=== PATIENT | male | born 1950 | race Caucasian/White ===

== ENCOUNTER 2017-06-07 13:40 | Observation (INO) | payer OTHER ==
[~2017-06-07] VITALS: Ht 180.3 cm; Wt 108.1 kg
[2017-06-07 14:30] LABS: BASO % 0.5 %; BASO ABS # 0.03 K/uL (0-0.2); EOS % 0.3 %; EOS ABS # 0.02 K/uL (0-0.5); HEMATOCRIT 42.8 % (42-52); HEMOGLOBIN 14.8 g/dL (14.0-18.0); IG# 0.01 K/uL (0.00-0.02); LYMPH % 22.5 %; LYMPH ABS # 1.46 K/uL (1.2-3.4); MEAN CELL VOLUME 89.5 fL (80-100); MEAN CORPUSCULAR HGB CONC 34.6 g/dl (32-36); MEAN PLATELET VOLUME 9.2 fL (7.4-10.4); MONO % 8.9 %; MONO ABS # 0.58 K/uL (0.11-0.59); NEUT % 67.6 %; NEUT ABS # 4.39 K/uL (1.4-6.5); PLATELET COUNT 208 K/uL (130-400); RED CELL DISTRIBUTION WIDTH CV 13.1 % (11.5-14.5); RED CELL DISTRIBUTION WIDTH SD 42.8 fL (36.4-46.3); WHITE BLOOD COUNT 6.49 K/uL (4.8-10.8)
[2017-06-07 14:31] LABS: INR 0.9 (0.9-1.1)
--- NOTE | 2017-06-07 14:47 | DIAGNOSTIC IMAGING REPORT ---
SINGLE VIEW CHEST CLINICAL HISTORY: Atypical chest pain. FINDINGS: An AP, portable, upright chest radiograph is obtained. No prior studies are available for comparison at the time of dictation. The examination is degraded by portable technique and patient rotation. The heart is top normal for projection. The pulmonary vasculature is noncongested. The lungs and pleural spaces are clear. No pneumothorax is seen. The bony thorax is grossly intact. Degenerative change is noted in the thoracic spine. IMPRESSION: No acute cardiopulmonary abnormality. Electronically signed by: Junior Alex M.D. 06/07/2017 2:46 PM Dictated Date/Time: 06/07/2017 2:45 PM
[2017-06-07 14:49] LABS: CALCIUM 8.9 mg/dl (8.5-10.1); CREATININE 1.23 mg/dl (0.60-1.40); POTASSIUM 3.9 mmol/L (3.5-5.1)
--- NOTE | 2017-06-07 14:57 | DIAGNOSTIC IMAGING REPORT ---
CT SCAN OF THE BRAIN WITHOUT IV CONTRAST CLINICAL HISTORY: Left arm and facial numbness. COMPARISON STUDY: No priors. TECHNIQUE: Unenhanced axial CT scan of the brain is performed from the vertex to the skull base. A dose lowering technique was utilized adhering to the principles of ALARA. CT DOSE: 669.45 mGycm FINDINGS: Brain parenchyma: The brain parenchyma is normal in appearance. There is no hemorrhage, mass effect, or evidence of acute territorial ischemia by CT criteria. Carranza-white matter is preserved. No extra-axial fluid collection is seen. Ventricles, sulci, cisterns: Normal in configuration. Intracranial vasculature: There is mild atherosclerotic calcification of the cavernous carotid arteries. Calvarium: Unremarkable. Sinuses and mastoids: The visualized paranasal sinuses are clear. The mastoid air cells are well pneumatized. Orbits: The bony orbits are grossly intact. IMPRESSION: There is no hemorrhage, mass effect, or evidence of acute territorial ischemia by CT criteria. Electronically signed by: Junior Alex M.D. 06/07/2017 2:56 PM Dictated Date/Time: 06/07/2017 2:54 PM
[2017-06-07] MEDS ORDERED: ACET-1256 PO (15:31)
[2017-06-07] MEDS ORDERED: LOSA1TAB38 PO (15:31)
[2017-06-07] MEDS ORDERED: ASPI81TA28 PO (15:31)
[2017-06-07] MEDS ORDERED: ATOR-24 PO (15:31)
[2017-06-07] MEDS ORDERED: MULT-513 PO (15:31)
--- NOTE | 2017-06-07 16:17 | EMERGENCY ROOM VISIT NOTE ---
History Report prepared by Geovani: Lizzette Ken Under the Supervision of: Dr. Deandre Julian M.D. First contact with patient: 14:02 Chief Complaint: CARDIAC ASSESSMENT Stated Complaint: CARDIAC HX - NUMBNESS IN LEFT ARM, PAIN History of Present Illness The patient is a 67 year old male who presents to the Emergency Room with complaints of intermittent chest discomfort starting 1 week ago. The discomfort is in his mid and left chest. He states the discomfort is "hard to explain", but states that it is not pressure or tightness. The discomfort lasts for 5-10 minutes at a time. He is not nauseous or diaphoretic with his chest discomfort. He is currently not having any chest discomfort. The discomfort does not worsen with exertion. He has also had intermittent left arm, left shoulder, and left lower lip tingling for the past 1-2 weeks. This tingling occurs with the chest pain. He is SOB with exertion, but notes that this is not new for him. He has had some congestion. He denies any vomiting, diarrhea, cough, focal weakness, leg swelling, or leg pain. The patient has a history of stents. He had weakness in his upper body prior to his stent. He denies any history of stroke. He is on aspirin which he has taken today. He has been taking all of his medications. The patient was seen by cardiology in [place] last week and offered an exercise stress test for exertional dyspnea and chest discomfort. The patient declined this as he felt it was not necessary. Source of History: patient Onset: 1 week ago Position: chest Quality: other (discomfort) Timing: intermittent Associated Symptoms: No diaphoresis, No cough, No nausea, No vomiting, No diarrhea, No weakness Note: Pt reports tingling in left arm, left shoulder, and left lower lip, congestion. Review of Systems See HPI for pertinent positives & negatives. A total of 10 systems reviewed and were otherwise negative. Past Medical & Surgical Surgical Problems: (1) S/P coronary artery stent placement Family History No pertinent family history stated. Social History Smoking Status: Never Smoker Marital Status: Current/Historical Medications Scheduled Aspirin (Aspirin Ec), 81 MG PO DAILY Atorvastatin (Lipitor), 40 MG PO DAILY Losartan Potassium (Cozaar), 100 MG PO DAILY Multivitamins/Minerals (Mvi With Minerals), 1 TAB PO DAILY Scheduled PRN Acetaminophen (Tylenol), 1,000 MG PO Q6 PRN for Headache or Pain Allergies Coded Allergies: No Known Allergies (Unverified , 06/07/17) Physical Exam Vital Signs Date Time Temp Pulse Resp B/P (MAP) Pulse Ox O2 Delivery O2 Flow Rate FiO2 06/07/17 15:34 68 152/84 94 Room Air 06/07/17 14:32 69 18 160/92 96 Room Air 06/07/17 14:29 97 Room Air 06/07/17 14:06 67 06/07/17 13:49 36.7 81 20 161/91 96 Room Air Physical Exam Constitutional: Vital signs reviewed. Eyes: Pupils are equal round reactive to light. Conjunctiva are noninjected. ENT: Pharynx is clear without erythema or exudate. Mucous membranes are moist. Neck supple without meningeal signs. Respiratory: Clear to auscultation bilaterally. Breath sounds are equal bilaterally. Cardiovascular: Regular rate and rhythm. No rubs or gallops. GI: Soft, nondistended and nontender. Bowel sounds are present. Musculoskeletal: No peripheral edema. No lower extremity tenderness. Integumentary: No cyanosis. Neurological: The patient is awake and alert. Cranial nerves II-XII are intact. Motor is 5 out of 5 all extremities. Sensation is intact to light touch all extremities. Normal speech. No pronator drift. Psychiatric: Normal affect. Medical Decision & Procedures ER Provider Diagnostic Interpretation: X-ray results as stated below per interpretation by me and the radiologist. Radiology results as stated below per my review and the radiologist's interpretation: SINGLE VIEW CHEST CLINICAL HISTORY: Atypical chest pain. FINDINGS: An AP, portable, upright chest radiograph is obtained. No prior studies are available for comparison at the time of dictation. The examination is degraded by portable technique and patient rotation. The heart is top normal for projection. The pulmonary vasculature is noncongested. The lungs and pleural spaces are clear. No pneumothorax is seen. The bony thorax is grossly intact. Degenerative change is noted in the thoracic spine. IMPRESSION: No acute cardiopulmonary abnormality. Electronically signed by: Junior Alex M.D. 06/07/2017 2:46 PM Dictated Date/Time: 06/07/2017 2:[address] SCAN OF THE BRAIN WITHOUT IV CONTRAST CLINICAL HISTORY: Left arm and facial numbness. COMPARISON STUDY: No priors. TECHNIQUE: Unenhanced axial CT scan of the brain is performed from the vertex to the skull base. A dose lowering technique was utilized adhering to the principles of ALARA. CT DOSE: 669.45 mGycm FINDINGS: Brain parenchyma: The brain parenchyma is normal in appearance. There is no hemorrhage, mass effect, or evidence of acute territorial ischemia by CT criteria. Carranza-white matter is preserved. No extra-axial fluid collection is seen. Ventricles, sulci, cisterns: Normal in configuration. Intracranial vasculature: There is mild atherosclerotic calcification of the cavernous carotid arteries. Calvarium: Unremarkable. Sinuses and mastoids: The visualized paranasal sinuses are clear. The mastoid air cells are well pneumatized. Orbits: The bony orbits are grossly intact. IMPRESSION: There is no hemorrhage, mass effect, or evidence of acute territorial ischemia by CT criteria. Electronically signed by: Junior Alex M.D. 06/07/2017 2:56 PM Dictated Date/Time: 06/07/2017 2:54 PM Laboratory Results 06/07/17 14:05 Red Blood Count 4.78, Mean Corpuscular Volume 89.5, Mean Corpuscular Hemoglobin 31.0, Mean Corpuscular Hemoglobin Concent 34.6, Mean Platelet Volume 9.2, Neutrophils (%) (Auto) 67.6, Lymphocytes (%) (Auto) 22.5, Monocytes (%) (Auto) 8.9, Eosinophils (%) (Auto) 0.3, Basophils (%) (Auto) 0.5, Neutrophils # (Auto) 4.39, Lymphocytes # (Auto) 1.46, Monocytes # (Auto) 0.58, Eosinophils # (Auto) 0.02, Basophils # (Auto) 0.03 06/07/17 14:05 Test 06/07/17 14:05 06/07/17 14:27 White Blood Count 6.49 K/uL (4.8-10.8) Red Blood Count 4.78 M/uL (4.7-6.1) Hemoglobin 14.8 g/dL (14.0-18.0) Hematocrit 42.8 % (42-52) Mean Corpuscular Volume 89.5 fL (80-100) Mean Corpuscular Hemoglobin 31.0 pg (25-34) Mean Corpuscular Hemoglobin Concent 34.6 g/dl (32-36) Platelet Count 208 K/uL (130-400) Mean Platelet Volume 9.2 fL (7.4-10.4) Neutrophils (%) (Auto) 67.6 % Lymphocytes (%) (Auto) 22.5 % Monocytes (%) (Auto) 8.9 % Eosinophils (%) (Auto) 0.3 % Basophils (%) (Auto) 0.5 % Neutrophils # (Auto) 4.39 K/uL (1.4-6.5) Lymphocytes # (Auto) 1.46 K/uL (1.2-3.4) Monocytes # (Auto) 0.58 K/uL (0.11-0.59) Eosinophils # (Auto) 0.02 K/uL (0-0.5) Basophils # (Auto) 0.03 K/uL (0-0.2) RDW Standard Deviation 42.8 fL (36.4-46.3) RDW Coefficient of Variation 13.1 % (11.5-14.5) Immature Granulocyte % (Auto) 0.2 % Immature Granulocyte # (Auto) 0.01 K/uL (0.00-0.02) Prothrombin Time 9.8 SECONDS (9.0-12.0) Prothromb Time International Ratio 0.9 (0.9-1.1) Activated Partial Thromboplast Time 24.0 SECONDS (21.0-31.0) Partial Thromboplastin Ratio 0.9 Anion Gap 5.0 mmol/L (3-11) Est Creatinine Clear Calc Drug Dose 73.5 ml/min Estimated GFR () 70.5 Estimated GFR (Non- 60.8 BUN/Creatinine Ratio 8.9 (10-20) Calcium Level 8.9 mg/dl (8.5-10.1) Bedside Troponin I < 0.030 ng/ml (0-0.045) Laboratory results as reviewed by me. ECG Per My Interpretation Indication: chest pain Rate (beats per minute): 81 Rhythm: normal sinus Findings: nonspecific-ST abn (Lateral), no ectopy, other (no ST elevation) ED Course 1404: The patient was evaluated in room B8. A complete history and physical exam was performed. 1504: I reevaluated the patient. He does not have any chest pain now, but had a few twinges. He denies any numbness. I discussed the test results with him. He verbalized agreement of the treatment plan. He will be evaluated for further management. 1513: I spoke with Dr. George [facility] hospitalist. We discussed the patient and his results. The patient will be further evaluated by him. Medical Decision This is a 67-year-old male who presents with chest pain and numbness on the left side. Differential diagnosis includes unstable angina, IN, pleurisy, TIA, CVA. I did perform a limited focused review of portions of the patient's old chart on the electronic medical record. The patient has had no prior visits to this hospital. I did evaluate the patient as noted above. He is presenting with intermittent chest pain for the past 1-2 weeks associated with some tingling to the left side of his body. It is not exertional. He does have shortness of breath with exertion but he states that this is a chronic issue for him. He does have a history of a cardiac stent. He was also seen by his physical geographer last week who offered to do a stress echocardiogram due to his symptoms. The patient had declined at that time. He did have an aspirin earlier today. He is currently not having any chest discomfort. IV access was established. The patient was placed on a continuous monitor technician. I did order and personally review the patient's 12-lead EKG and chest x-ray as described above. His twelve-lead EKG shows some nonspecific changes. No old EKGs available for comparison. His chest x-ray is unremarkable. I did order and review the patient's blood work as noted in the electronic medical record. I did order a CT of the head because of his numbness on the left side. I did review the images myself as well as the radiology report as described above. I did discuss the test results with the patient. I did recommend hospitalization given his prior history of cardiac stent and similar issues with dyspnea on exertion. He also has an abnormal EKG, although I do not have an old one to compare this with. I also recommended further workup regarding his numbness on the left side. I did discuss case with the hospitalist. Medication Reconcilliation Current Medication List: was personally reviewed by me Blood Pressure Screening Patient's blood pressure: Elevated blood pressure Blood pressure disposition: Referred to PCP Consults Time Called: 1510 Consulting Physician: Dr. George [facility] hospitalist Returned Call: 1513 I spoke with him. We discussed the patient and his results. The patient will be further evaluated by him. Impression Primary Impression: Left sided chest pain Additional Impressions: ESCOBAR (dyspnea on exertion) Left sided numbness Scribe Attestation The scribe's documentation has been prepared under my direct and personally reviewed by me in its entirety. I confirm that the note above accurately reflects all work, treatment, procedures, and medical decision making performed by me. Departure Information Dispostion Being Evaluated By Hospitalist Referrals Mason Huffman D.O. (PCP) Patient Instructions My [facility] Problem Qualifiers
[2017-06-07] MEDS ORDERED: ACETAMINOPHEN 325 MG TAB PO PRN (16:30)
[2017-06-07] MEDS ORDERED: MoRPHine SULFATE 2 MG/ML CARP IV PRN (16:30)
[2017-06-07] MEDS ORDERED: ZOLPIDEM TARTRATE 5 MG TAB PO PRN (16:30)
[2017-06-07] MEDS ORDERED: MAGNESIUM HYDROXIDE SUSP 30 ML UDC PO PRN (16:30)
[2017-06-07] MEDS ORDERED: POLYETHYLENE (MIRALAX) 17 GM PACK PO PRN (16:30)
[2017-06-07] MEDS ORDERED: NITROGLYCERIN 0.4 MG SL PER TAB CHARGE SL PRN (16:30)
[2017-06-07] MEDS ORDERED: ALUMINUM/MAGNESIUM/SIMETH (MAALOX MAX) 30 ML UDC PO PRN (16:30)
[2017-06-07] MEDS ORDERED: ONDANSETRON INJ 2 MG/ML 2 ML VIAL IV PRN (16:30)
--- NOTE | 2017-06-07 16:50 | History and Physical ---
History & Physical Date & Time of Service: Jun 07, 2017 at 16:36 Chief Complaint: Cardiac Hx - Numbness In Left Arm, Pain Primary Care Physician: Artie Elder M.D. History of Present Illness Source: patient 67 y/o M Hx HTN, HPL, CAD. Over the last 2 weeks he has had intermittent CP with numbness in his L arm, shoulder and around his lips. He denies SOB, N/V or diaphoresis. He apparently went to see his zinc plate cutter last week and was advised on pursuing a stress test. He declined the suggestion. Past Medical/Surgical History 1) HTN 2) HPL 3) CAD - cath and one stent 2006 Family History Mother - CHF Father alive ad well Social History Does not smoke - drinks in moderation - retired Smoking Status: Never Smoker Marital Status: Allergies Coded Allergies: No Known Allergies (Unverified , 06/07/17) Home Medications Scheduled Aspirin (Aspirin Ec), 81 MG PO DAILY Atorvastatin (Lipitor), 40 MG PO DAILY Losartan Potassium (Cozaar), 100 MG PO DAILY Multivitamins/Minerals (Mvi With Minerals), 1 TAB PO DAILY Scheduled PRN Acetaminophen (Tylenol), 1,000 MG PO Q6 PRN for Headache or Pain Review of Systems Constitutional: No fever, No chills, No sweats Eyes: No worsening of vision ENT: No hearing loss, No nasal symptoms Respiratory: No cough, No wheezing Cardiovascular: + chest pain Abdomen: No pain, No nausea, No vomiting Musculoskeletal: No joint pain Genitourinary - Male: No hematuria, No dysuria Neurologic: + numbness/tingling (Arm, shoulder, mouth on L), No memory loss, No paralysis, No weakness Psychiatric: No depression symptoms Endocrine: No fatigue Hematologic / Lymphatic: No abnormal bleeding/bruising Integumentary: No rash Allergic / Immunologic: No environmental allergies Physical Exam Vital Signs Date Time Temp Pulse Resp B/P (MAP) Pulse Ox O2 Delivery O2 Flow Rate FiO2 06/07/17 15:34 68 152/84 94 Room Air 06/07/17 14:32 69 18 160/92 96 Room Air 06/07/17 14:29 97 Room Air 06/07/17 14:06 67 06/07/17 13:49 36.7 81 20 161/91 96 Room Air General Appearance: WD/WN, no apparent distress Head: normocephalic Eyes: normal inspection ENT: normal ENT inspection, pharynx normal Neck: supple, no JVD Respiratory/Chest: chest non-tender, lungs clear, normal breath sounds Cardiovascular: regular rate, rhythm, no edema, no gallop Abdomen/GI: normal bowel sounds, non tender, soft Back: normal inspection, no CVA tenderness Extremities/Musculoskelatal: normal inspection, no calf tenderness, normal capillary refill Neurologic/Psych: compliance investigator II-XII nml as tested, no motor/sensory deficits, alert, oriented x 3 Skin: normal color Diagnostics Laboratory Results Results Past 24 Hours Test 06/07/17 14:05 06/07/17 14:27 Range/Units White Blood Count 6.49 4.8-10.8 K/uL Red Blood Count 4.78 4.7-6.1 M/uL Hemoglobin 14.8 14.0-18.0 g/dL Hematocrit 42.8 42-52 % Mean Corpuscular Volume 89.5 80-100 fL Mean Corpuscular Hemoglobin 31.0 25-34 pg Mean Corpuscular Hemoglobin Concent 34.6 32-36 g/dl Platelet Count 208 130-400 K/uL Mean Platelet Volume 9.2 7.4-10.4 fL Neutrophils (%) (Auto) 67.6 % Lymphocytes (%) (Auto) 22.5 % Monocytes (%) (Auto) 8.9 % Eosinophils (%) (Auto) 0.3 % Basophils (%) (Auto) 0.5 % Neutrophils # (Auto) 4.39 1.4-6.5 K/uL Lymphocytes # (Auto) 1.46 1.2-3.4 K/uL Monocytes # (Auto) 0.58 0.11-0.59 K/uL Eosinophils # (Auto) 0.02 0-0.5 K/uL Basophils # (Auto) 0.03 0-0.2 K/uL RDW Standard Deviation 42.8 36.4-46.3 fL RDW Coefficient of Variation 13.1 11.5-14.5 % Immature Granulocyte % (Auto) 0.2 % Immature Granulocyte # (Auto) 0.01 0.00-0.02 K/uL Prothrombin Time 9.8 9.0-12.0 SECONDS Prothromb Time International Ratio 0.9 0.9-1.1 Activated Partial Thromboplast Time 24.0 21.0-31.0 SECONDS Partial Thromboplastin Ratio 0.9 Sodium Level 139 136-145 mmol/L Potassium Level 3.9 3.5-5.1 mmol/L Chloride Level 108 98-107 mmol/L Carbon Dioxide Level 26 21-32 mmol/L Anion Gap 5.0 3-11 mmol/L Blood Urea Nitrogen 11 7-18 mg/dl Creatinine 1.23 0.60-1.40 mg/dl Est Creatinine Clear Calc Drug Dose 73.5 ml/min Estimated GFR () 70.5 Estimated GFR (Non- 60.8 BUN/Creatinine Ratio 8.9 10-20 Random Glucose 97 70-99 mg/dl Calcium Level 8.9 8.5-10.1 mg/dl Bedside Troponin I < 0.030 0-0.045 ng/ml Normal EKG Impression Assessment and Plan 67 y/o M Hx HTN, HPL, CAD. Over the last 2 weeks he has had intermittent CP with numbness in his L arm, shoulder and around his lips. He denies SOB, N/V or diaphoresis. He apparently went to see his zinc plate cutter last week and was advised on pursuing a stress test. He declined the suggestion. 1) CP/CAD - assigned to telemetry - serial enzymes requested. Cont ASA, Statin - HR may not tolerate a B [place]. Can likely pursue an outpt stress provided serial enzymes are WNL. 2) HTN - cont Losartan 3) HPL - cont Satin Full code - Heparin prophylaxis - total time for thi admit including review of labs, meds, EKG - discussion with pt and ER attending - 35 min Level of Care Telemetry Resuscitation Status FULL RESUSCITATION VTE Prophylaxis VTE Risk Assessment Done? Y/N: Yes Risk Level: Moderate Given or contraindicated: Unfractionated heparin SQ
[2017-06-07] MEDS ORDERED: IV FLUIDS COMPLETED PRN (17:15)
[2017-06-07 18:40] VITALS: BP 140/81; PULSE 69; TEMP 36.8; O2SAT 98; Ht 180.3 cm; Wt 108.1 kg
[2017-06-07 19:41] VITALS: BP 129/75; PULSE 94; TEMP 37.2; O2SAT 97
[2017-06-07 20:00] VITALS: O2SAT 97
[2017-06-07] MEDS: HEPARIN SOD 5000 UNIT/0.5 ML CARP SQ SCH (20:58)
[2017-06-08] VITALS: BP 123/73; PULSE 61; TEMP 36.7; O2SAT 96
[2017-06-08 04:14] VITALS: BP 118/70; PULSE 61; TEMP 36.8; O2SAT 95
[2017-06-08] MEDS: HEPARIN SOD 5000 UNIT/0.5 ML CARP SQ SCH (05:48)
[2017-06-08 07:43] VITALS: BP 125/66; PULSE 70; TEMP 36.8; O2SAT 95
[2017-06-08] MEDS ORDERED: LOSARTAN POTASSIUM 50 MG TAB PO SCH (09:00)
[2017-06-08] MEDS ORDERED: ASPIRIN 81 MG ECTAB PO SCH (09:00)
[2017-06-08] MEDS ORDERED: ATORVASTATIN 40 MG TAB PO SCH (09:00)
--- NOTE | 2017-06-08 09:41 | Discharge Instructions ---
Discharge Instructions Date of Service Jun 08, 2017. Admission Reason for Admission: Left Sided Chest Pain Discharge Discharge Diagnosis / Problem: Chest pain, arm and lip/jaw numbness Discharge Goals Goal(s): Decrease discomfort, Improve function, Diagnostic testing (cardiac stress test) Activity Recommendations Activity Limitations: resume your previous activity . Instructions / Follow-Up Instructions / Follow-Up Medications: no changes Chest pain/pressure with associated jaw/left arm numbness three sets of cardiac enzymes negative, EKG on admission and this morning were normal, no signs of ischemia recommend calling power lineman in [place] on Saturday to schedule a stress test this week symptoms could also represent reflux, recommend trying Tums when you get chest pressure to see if it resolves left arm numbness could be neck arthritis, discuss with PCP about x-rays FOLLOW UP - call power lineman Saturday to get scheduled for stress test this week - call PCP on Saturday to discuss getting cervical spine x-ray, possible treatment for GERD, follow up in office after stress test Current Hospital Diet Patient's current hospital diet: AHA Diet (Heart Healthy) Discharge Diet Recommended Diet: AHA Diet (Heart Healthy) Pending Studies Studies pending at discharge: no Medical Emergencies . Who to Call and When: Medical Emergencies: If at any time you feel your situation is an emergency, please call 911 immediately. . Non-Emergent Contact Non-Emergency issues call your: Primary Care Provider, Plane Captain Call Non-Emergent contact if: you have any medication questions . . "Provider Documentation" section prepared by Yonathan Carrera. . VTE Core Measure Inpt VTE Proph given/why not?: Unfractionated heparin SQ [place] Drug Monitoring Program Search Results: no issues identified
[2017-06-08 10:00] VITALS: BP 125/66; PULSE 70; TEMP 36.8; O2SAT 95
--- NOTE | 2017-06-08 14:13 | Discharge Summary ---
Discharge Summary Date of Service Jun 08, 2017. Discharge Summary Admission Date: Jun 07, 2017 at 16:24 Discharge Date: Jun 08, 2017 Discharge Disposition: Home Principal Diagnosis: Chest pain Problems/Secondary Diagnoses: Jaw and left arm numbness/tingling Procedures: none Consultations: none Medication Reconciliation Continued Medications: Acetaminophen (Tylenol) 500 Mg Tab 1000 MG PO Q6 PRN for Headache or Pain, TAB Aspirin (Aspirin Ec) 81 Mg Tab 81 MG PO DAILY Atorvastatin (Lipitor) 40 Mg Tab 40 MG PO DAILY, TAB Losartan Potassium (Cozaar) 100 Mg Tab 100 MG PO DAILY, TAB Multivitamins/Minerals (Mvi With Minerals) Tab 1 TAB PO DAILY, TAB Discharge Exam Patient with no chest pain this morning. Reviewed EKG and troponin, both normal. Discussed that would not perform stress test on Saturday on someone high risk since he had a h/o CAD and stenting. Recommended he call his jitney driver in [place] and schedule stress this week. Discussed that it could be GERD since burping made chest pressure better. Also discussed getting imaging of neck to r/o arthritis, radiculopathy that could explain arm symptoms. He agreed with this plan. Review of Systems: Constitutional: No fever, No chills, No sweats, No weight loss, No weakness , No fatigue, No problem reported Eyes: No worsening of vision, No eye pain, No redness, No discharge, No diplopia, No problem reported ENT: No hearing loss, No unusual epistaxis, No nasal symptoms, No sore throat, No tinnitus, No dental problems, No trouble swallowing, No problem reported Respiratory: No cough, No sputum, No wheezing, No shortness of breath, No dyspnea on exertion, No dyspnea at rest, No hemoptysis, No problem reported Cardiovascular: No chest pain, No orthopnea, No PND, No edema, No claudication, No palpitations, No problem reported Abdomen: No pain, No nausea, No vomiting, No diarrhea, No constipation, No GI bleeding, No problem reported Musculoskeletal: No joint pain, No muscle pain, No swelling, No calf pain, No problem reported Genitourinary - Male: No hematuria, No dysuria, No urinary frequency, No urinary urgency Neurologic: No memory loss, No paralysis, No weakness, No numbness/tingling , No vertigo, No balance problems, No problem reported Psychiatric: No depression symptoms, No anhedonism, No anxiety, No insomnia , No substance abuse, No problem reported Endocrine: No fatigue, No excessive thirst, No excessive urination, No problem reported Integumentary: No rash, No itch, No new/changing skin lesions, No color change, No bleeding, No problem reported Physical Exam: General Appearance: WD/WN, no apparent distress Eyes: normal inspection, EOMI, sclerae normal ENT: normal ENT inspection, hearing grossly normal, pharynx normal Neck: supple, no adenopathy, no JVD, trachea midline Respiratory/Chest: chest non-tender, lungs clear, normal breath sounds, no respiratory distress, no accessory muscle use Cardiovascular: regular rate, rhythm, no edema, no gallop, no JVD, no murmur , normal peripheral pulses Abdomen / GI: normal bowel sounds, non tender, soft, no organomegaly Extremities: normal inspection, no calf tenderness, normal capillary refill , no pedal edema, normal range of motion, pelvis stable 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 Over the last 2 weeks he has had intermittent CP with numbness in his L arm, shoulder and around his lips. He denies SOB, N/V or diaphoresis. He apparently went to see his jitney driver last week and was advised on pursuing a stress test. He declined the suggestion. - Chest pressure/pain in patient with prior h/o CAD and stents in 2006 EKG x 2 without ischemic changes, troponin negative x [address], recommended calling jitney driver office in [place] for stress test this week symptoms atypical for angina, occur at rest, does not occur when exerting himself he recalls that pain improved with belching, suggested he try Tums for the pain, could be GERD he declined a prescription for daily PPI - Left arm numbness/tingling and jaw pain angina equivalent? no neck pain, no h/o neck injury, still could be radiculopathy recommend follow up with PCP and discuss cervical spine films - HTN: BP stable, continue Losartan - Dyslipidemia: statin therapy Total Time Spent: Greater than 30 minutes This includes examination of the patient, discharge planning, medication reconciliation, and communication with other providers. Discharge Instructions Please refer to the electronic Patient Visit Report (Discharge Instructions) for additional information. Follow-Up Dr. Elder in one week, needs stress test this week Additional Copies To Artie Elder M.D.
== END 2017-06-08 10:18 | disposition home or self-care (01) ==
LOC: C.EDB 13:42 → C.2T 16:24 → ENRESERV 17:13
PROVIDERS: ADMIT Internal Medicine; ATTEND Internal Medicine
DX: R07.9 Chest pain, unspecified (principal); R06.00 Dyspnea, unspecified; R20.0 Anesthesia of skin; I25.10 Atherosclerotic heart disease of native coronary artery without angina pectoris; I10 Essential (primary) hypertension; E78.5 Hyperlipidemia, unspecified; Z79.82 Long term (current) use of aspirin; Z82.49 Family history of ischemic heart disease and other diseases of the circulatory system